=== PATIENT | female | born 1955 | race Two or more races ===

== ENCOUNTER 2016-12-26 10:28 | Inpatient (IN) | payer MEDICARE, OTHER ==
[~2016-12-26] VITALS: Ht 152.4 cm; Wt 61.2 kg
[~2016-12-26 10:28] MED LIST: AMLODIPINE BESYL5 MG ORAL; ASPIRIN EC81 MG ORAL; CELEBREX100 MG ORAL; CYCLOBENZAPRINE10 MG ORAL; FLUCONAZOLE150 MG ORAL; FLUTICASONE; IBUPROFEN600 MG ORAL; LORATADINE10 M1 ORAL; LOSARTAN POTASS50 MG ORAL; LOTRISONE CREAM15 GM TP; MEDROL DOSEPAK4 MG ORAL; MONTELUKAST SOD10 MG ORAL; NORCO 5-325 TA1 EACH ORAL; PEPCID40 MG PO; PRAVASTATIN SOD40 M1 ORAL; PRILOSEC40 MG ORAL; QVAR 80MCG ORA1 PUFF INH; SERTRALINE HCL100 MG ORAL; TRAMADOL HCL100 M2 ORAL; TRIAMCINOLONE A60 ML TP; TRIAMTERENE-HC1 EAC7 ORAL
[2016-12-26 10:43] VITALS: BP 129/75
[2016-12-26 11:05] LABS: BASOPHILS % (AUTO) 0.9 % (0.0-2.0); EOSINOPHILS % (AUTO) 1.7 % (0.0-3.0); LYMPHOCYTES % (AUTO) 46.2 % (20.0-45.0); MEAN CORPUSCULAR HEMOGLOBIN 29.5 PG (27.0-31.0); MEAN CORPUSCULAR HGB CONC 32.1 G/DL (32.0-36.0); MEAN CORPUSCULAR VOLUME 92 FL (80-99); MEAN PLATELET VOLUME 5.7 FL (6.5-10.1); MONOCYTES % (AUTO) 7.9 % (1.0-10.0); NEUTROPHILS % (AUTO) 43.4 % (45.0-75.0); PLATELET COUNT 235 K/UL (150-450); RED BLOOD COUNT 4.27 M/UL (4.20-5.40); RED CELL DISTRIBUTION WIDTH 14.1 % (11.6-14.8); WHITE BLOOD COUNT 4.8 K/UL (4.8-10.8)
--- NOTE | 2016-12-26 11:11 | Diagnostic Imaging Report ---
Indication: Chest pain Technique: XRAY CHEST 1 V Comparison: 04/24/13 Findings: Cardiomedial still silhouette is stable. There is no consolidation or pleural effusion. Osseous structures are stable. Impression: No acute cardiopulmonary disease.
[2016-12-26] MEDS ORDERED: Nitroglycerin Subl 0.4mg tab (Bottle Of 25) SL PRN ×2 (11:15→13:45)
[2016-12-26 11:17] LABS: TROPONIN I < 0.30 ng/mL (<=0.30)
[2016-12-26 11:19] LABS: ALANINE AMINOTRANSFERASE 26 U/L (3-33); ALBUMIN/GLOBULIN RATIO 1.3 (1.0-2.7); ANION GAP 16 (5-15); ASPARTATE AMINO TRANSFERASE 31 U/L (5-40); CARBON DIOXIDE 22 mEQ/L (20-30); CHLORIDE 99 mEQ/L (98-107); CREATININE 0.7 mg/dL (0.5-0.9); GLOMERULAR FILTRATION RATE > 60 mL/min (>60); HEMOLYSIS 4; SODIUM 137 mEQ/L (135-145); TOTAL PROTEIN 6.7 g/dL (6.6-8.7)
[2016-12-26 11:37] LABS: CKMB 7.8 ng/mL (< 3.8)
[2016-12-26 12:26] VITALS: BP 118/74
[2016-12-26] MEDS ORDERED: Diltiazem 25mg/5ml IV PRN (13:45)
[2016-12-26] MEDS ORDERED: Ketorolac 30mg Inj IV PRN (13:45)
[2016-12-26] MEDS ORDERED: Enalaprilat 2.5mg/2ml Inj IV PRN (13:45)
[2016-12-26] MEDS ORDERED: DuoNeb 0.5-3(2.5)mg/3ml neb HHN PRN (13:45)
[2016-12-26] MEDS ORDERED: Miralax 17gm pkt ORAL PRN (13:45)
[2016-12-26] MEDS ORDERED: Morphine Sulfate 2mg/ml Inj IVP PRN (13:45)
--- NOTE | 2016-12-26 14:16 | Emergency Room Report ---
History of Present Illness General Chief Complaint: Chest Pain Source: Patient Present Illness HPI 61-year-old female presents to ED complaining of chest pain. Started this morning while at rest. Pain is midsternal, pressure-like. 8/10. Nonradiating. Denies shortness of breath. Also notes headache across the forehead, throbbing. Denies neck stiffness. Denies fevers or chills. Denies nausea or vomiting. No other aggravating relieving factors. Denies any other associated symptoms Allergies: Coded Allergies: No Known Allergies (Unverified , 04/24/13) Patient History Past Medical History: DM, HTN, asthma, CVA/TIA Past Surgical History: none Pertinent Family History: none Social History: Denies: alcohol use, drug use, smoking Now: No Immunizations: UTD Reviewed Nursing Documentation: PMH: Agreed, PSxH: Agreed Nursing Documentation-PMH Hx Cardiac Problems: No - hyperlipidemia Hx Hypertension: Yes Hx Pacemaker: No - HYPOTHYROIDSIM Hx Asthma: Yes Hx Diabetes: Yes Hx Cancer: No Hx Gastrointestinal Problems: No Hx Neurological Problems: Yes Hx Cerebrovascular Accident: Yes - 2010 Hx Weakness: Yes - GENERALIZED Review of Systems All Other Systems: negative except mentioned in HPI Physical Exam Vital Signs Date Time Temp Pulse Resp B/P Pulse Ox O2 Delivery O2 Flow Rate FiO2 12/26/16 10:37 98.2 68 20 129/75 100 Room Air Sp02 EP Interpretation: reviewed, normal General Appearance: no apparent distress, alert, GCS 15, non-toxic Head: normocephalic, atraumatic Eyes: bilateral eye PERRL, bilateral eye normal inspection ENT: hearing grossly normal, normal pharynx, no angioedema, normal voice Neck: full range of motion, supple/symm/no masses Respiratory: chest non-tender, lungs clear, normal breath sounds, speaking full sentences Cardiovascular #1: regular rate, rhythm, no edema Cardiovascular #2: 2+ carotid (R), 2+ carotid (L), 2+ radial (R), 2+ radial (L) , 2+ dorsalis pedis (R), 2+ dorsalis pedis (L) Gastrointestinal: normal bowel sounds, non tender, soft, non-distended, no guarding, no rebound Rectal: deferred Genitourinary: normal inspection, no CVA tenderness Musculoskeletal: back normal, gait/station normal, normal range of motion, non- tender Neurologic: alert, oriented x3, responsive, motor strength/tone normal, sensory intact, speech normal Psychiatric: judgement/insight normal, memory normal, mood/affect normal, no suicidal/homicidal ideation Reflexes: 3+ bicep (R), 3+ bicep (L), 3+ tricep (R), 3+ tricep (L), 3+ knee (R) , 3+ knee (L) Skin: normal color, no rash, warm/dry, well hydrated Lymphatic: no adenopathy Medical Decision Making Diagnostic Impression: Primary Impression: ACS (acute coronary syndrome) ER Course Hospital Course 61-year-old female presents ED complaining of pressure like chest pain Differential diagnoses include: AR/unstable angina, contusion, muscle strain, PTX, rib fracture Clinical course Patient placed on stretcher. on posting specialist. After initial history and physical I ordered labs, EKG, chest x-ray, NTG labs reviewed- no leukocytosis, hb/hct stable, electrolytes ok, trop negative EKG - NSR , no acute changes Chest x-ray- no acute process CT head ok given asa Case discussed with Dr. Fisher and he agreed to accept the patient to his service for further care and support I. I feel this is a highly complex case requiring extensive working including EKG/Rhythm strip, Xray/CT/US, Blood/urine lab work, repeat exams while in ED, and administration of strong opiates/narcotics for pain control, admission to hospital or close patient follow up. Diagnosis - ACS admitted to telemetry in serious condition Labs Test 12/26/16 10:55 White Blood Count 4.8 K/UL (4.8-10.8) Red Blood Count 4.27 M/UL (4.20-5.40) Hemoglobin 12.6 G/DL (12.0-16.0) Hematocrit 39.3 % (37.0-47.0) Mean Corpuscular Volume 92 FL (80-99) Mean Corpuscular Hemoglobin 29.5 PG (27.0-31.0) Mean Corpuscular Hemoglobin Concent 32.1 G/DL (32.0-36.0) Red Cell Distribution Width 14.1 % (11.6-14.8) Platelet Count 235 K/UL (150-450) Mean Platelet Volume 5.7 FL (6.5-10.1) Neutrophils (%) (Auto) 43.4 % (45.0-75.0) Lymphocytes (%) (Auto) 46.2 % (20.0-45.0) Monocytes (%) (Auto) 7.9 % (1.0-10.0) Eosinophils (%) (Auto) 1.7 % (0.0-3.0) Basophils (%) (Auto) 0.9 % (0.0-2.0) Sodium Level 137 mEQ/L (135-145) Potassium Level 4.0 mEQ/L (3.4-4.9) Chloride Level 99 mEQ/L (98-107) Carbon Dioxide Level 22 mEQ/L (20-30) Anion Gap 16 (5-15) Blood Urea Nitrogen 12 mg/dL (7-23) Creatinine 0.7 mg/dL (0.5-0.9) Estimat Glomerular Filtration Rate > 60 mL/min (>60) Glucose Level 92 mg/dL (74-106) Calcium Level 9.0 mg/dL (8.6-10.2) Total Bilirubin 0.5 mg/dL (0.0-1.2) Aspartate Amino Transf (AST/SGOT) 31 U/L (5-40) Alanine Aminotransferase (ALT/SGPT) 26 U/L (3-33) Alkaline Phosphatase 109 U/L (35-104) Total Creatine Kinase 312 U/L (26-140) Creatine Kinase MB 7.8 ng/mL (< 3.8) Creatine Kinase MB Relative Index 2.5 Troponin I < 0.30 ng/mL (<=0.30) Pro-B-Type Natriuretic Peptide 98 pg/mL (0-125) Total Protein 6.7 g/dL (6.6-8.7) Albumin 3.9 g/dL (3.5-5.2) Globulin 2.8 g/dL Albumin/Globulin Ratio 1.3 (1.0-2.7) EKG Diagnostic Results Rate: normal Rhythm: NSR ST Segments: no acute changes ASA given to the pt in ED: Yes Rhythm Strip Diag. Results EP Interpretation: yes Rhythm: NSR, no PVC's, no ectopy Chest X-Ray Diagnostic Results EP Interpretation: No Findings: no consolidation, no effusion, no pneumothorax, no acute cardiopulmonary disease Number of Views: 1 CT/MRI/US Diagnostic Results CT/MRI/US Diagnostic Results : Imaging Test Ordered: CT head Impression no acute process Last Vital Signs Date Time Temp Pulse Resp B/P Pulse Ox O2 Delivery O2 Flow Rate FiO2 12/26/16 12:26 20 118/74 100 Room Air 12/26/16 10:43 98.2 12/26/16 10:43 68 Status: improved Disposition: ADMITTED INPATIENT Condition: Serious Referrals: NON PHYSICIAN (PCP) CHRISTOPHER JARRETT M.D. Dec 26, 2016 14:16
[2016-12-26] MEDS ORDERED: IBUPROFEN600 MG ORAL (14:58)
[2016-12-26] MEDS ORDERED: IBUPROFEN400 MG ORAL (14:59)
[2016-12-26] MEDS ORDERED: ADVAIR HFA 230-12 GM INH (15:03)
[2016-12-26] MEDS ORDERED: PROAIR HFA8.5 GM INH (15:04)
[2016-12-26] MEDS ORDERED: HYDROCORTISON28.4 G6 TP (15:09)
[2016-12-26] MEDS ORDERED: LOVAZA1 GM ORAL (15:10)
[2016-12-26] MEDS ORDERED: AZELASTINE137 MCG/0. NS (15:11)
[2016-12-26] MEDS ORDERED: SUMATRIPTAN SUC25 MG PO (15:12)
[2016-12-26] MEDS ORDERED: DIPHENHYDRAMINE25 M1 ORAL (15:15)
[2016-12-26] MEDS ORDERED: FAMOTIDINE20 MG ORAL (15:18)
[2016-12-26] MEDS ORDERED: FLUTICASONE PRO16 G1 NASAL (15:18)
[2016-12-26] MEDS ORDERED: PROCTOCREAM-HC30 GM RC (15:20)
[2016-12-26] MEDS ORDERED: ALLER-TEC10 M1 PO (15:21)
[2016-12-26] MEDS ORDERED: LANSOPRAZOLE30 MG ORAL (15:21)
[2016-12-26] MEDS ORDERED: LEVOTHYROXINE25 MCG ORAL (15:22)
[2016-12-26] MEDS ORDERED: INDERAL LA60 MG ORAL (15:23)
[2016-12-26] MEDS ORDERED: PAMELOR10 MG ORAL (15:24)
[2016-12-26] MEDS ORDERED: TRAMADOL HCL50 MG ORAL (15:26)
[2016-12-26] MEDS ORDERED: PATADAY2.5 ML OP (15:27)
[2016-12-26 15:30] VITALS: BP 113/76
[2016-12-26] MEDS ORDERED: NATURE'S TEARS15 M1 OP (15:30)
[2016-12-26 15:52] LABS: TROPONIN I < 0.30 ng/mL (<=0.30)
--- NOTE | 2016-12-26 16:56 | Cardiology Progress Note ---
Subjective Subjective [id number] Objective Last 24 Hour Vital Signs Date Time Temp Pulse Resp B/P Pulse Ox O2 Delivery O2 Flow Rate FiO2 12/26/16 14:38 98.2 76 20 124/77 100 Room Air 12/26/16 12:26 69 20 118/74 100 Room Air 12/26/16 11:25 112/74 12/26/16 10:43 98.2 20 129/75 100 Room Air 12/26/16 10:43 68 20 Room Air 12/26/16 10:37 98.2 68 20 129/75 100 Room Air Laboratory Tests Test 12/26/16 10:55 12/26/16 15:10 White Blood Count 4.8 K/UL (4.8-10.8) Red Blood Count 4.27 M/UL (4.20-5.40) Hemoglobin 12.6 G/DL (12.0-16.0) Hematocrit 39.3 % (37.0-47.0) Mean Corpuscular Volume 92 FL (80-99) Mean Corpuscular Hemoglobin 29.5 PG (27.0-31.0) Mean Corpuscular Hemoglobin Concent 32.1 G/DL (32.0-36.0) Red Cell Distribution Width 14.1 % (11.6-14.8) Platelet Count 235 K/UL (150-450) Mean Platelet Volume 5.7 FL (6.5-10.1) L Neutrophils (%) (Auto) 43.4 % (45.0-75.0) L Lymphocytes (%) (Auto) 46.2 % (20.0-45.0) H Monocytes (%) (Auto) 7.9 % (1.0-10.0) Eosinophils (%) (Auto) 1.7 % (0.0-3.0) Basophils (%) (Auto) 0.9 % (0.0-2.0) Sodium Level 137 mEQ/L (135-145) Potassium Level 4.0 mEQ/L (3.4-4.9) Chloride Level 99 mEQ/L (98-107) Carbon Dioxide Level 22 mEQ/L (20-30) Anion Gap 16 (5-15) H Blood Urea Nitrogen 12 mg/dL (7-23) Creatinine 0.7 mg/dL (0.5-0.9) Estimat Glomerular Filtration Rate > 60 mL/min (>60) Glucose Level 92 mg/dL (74-106) Calcium Level 9.0 mg/dL (8.6-10.2) Total Bilirubin 0.5 mg/dL (0.0-1.2) Aspartate Amino Transf (AST/SGOT) 31 U/L (5-40) Alanine Aminotransferase (ALT/SGPT) 26 U/L (3-33) Alkaline Phosphatase 109 U/L (35-104) H Total Creatine Kinase 312 U/L (26-140) H Creatine Kinase MB 7.8 ng/mL (< 3.8) H Creatine Kinase MB Relative Index 2.5 Troponin I < 0.30 ng/mL (<=0.30) < 0.30 ng/mL (<=0.30) Pro-B-Type Natriuretic Peptide 98 pg/mL (0-125) Total Protein 6.7 g/dL (6.6-8.7) Albumin 3.9 g/dL (3.5-5.2) Globulin 2.8 g/dL Albumin/Globulin Ratio 1.3 (1.0-2.7) STANLEY DENNY Dec 26, 2016 16:56
--- NOTE | 2016-12-26 19:07 | History and Physical ---
History of Present Illness General Date patient seen: Dec 26, 2016 Reason for Hospitalization: Chest Pain Present Illness HPI 61-year-old female with hx of HTN, astham, migraine presented to ED complaining of chest pain while at rest. Pain is midsternal, pressure-like. . Nonradiating. Pt is admitted to telemetry to rule out unstable angina and ACS. Allergies: Coded Allergies: No Known Allergies (Unverified , 04/24/13) Medication History Scheduled Albuterol Sulfate* (Proair Hfa*), 1 PUFF INH Q6H, (Reported) Amlodipine Besylate* (Amlodipine Besylate*), 5 MG ORAL DAILY, (Reported) Dextran 70/Hypromellose (Nature's Tears Eye Drops), 15 ML OP QHS, (Reported) Famotidine (Famotidine), 20 MG ORAL DAILY, (Reported) Fluticasone Propionate* (Fluticasone Propionate*), 2 SPRAY NASAL DAILY, ( Reported) Ibuprofen* (Motrin*), 400 MG ORAL Q8H, (Reported) Lansoprazole* (Lansoprazole*), 30 MG ORAL DAILY, (Reported) Levothyroxine Sodium* (Levothyroxine Sodium*), 25 MCG ORAL DAILY, (Reported) Losartan Potassium* (Losartan Potassium*), 50 MG ORAL DAILY, (Reported) Montelukast Sodium* (Montelukast Sodium*), 10 MG ORAL DAILY, (Reported) Nortriptyline Hcl* (Pamelor*), 10 MG ORAL DAILY, (Reported) Olopatadine Hcl (Pataday), 0.2 % OP DAILY, (Reported) [place]-3 Acid Ethyl Esters (Lovaza), 1 GM ORAL DAILY, (Reported) Pravastatin Sod (Pravastatin Sod), 40 MG ORAL DAILY, (Reported) Propranolol Hcl* (Inderal La*), 60 MG ORAL DAILY, (Reported) Scheduled PRN Tramadol Hcl* (Ultram*), Unknown Dose ORAL Q6H PRN for For Pain, (Reported) Miscellaneous Medications Azelastine Hcl (Azelastine Hcl), 137 MCG NS, (Reported) Cetirizine Hcl (Aller-Steph), Unknown Dose PO, (Reported) Diphenhydramine Hcl* (Diphenhydramine Hcl*), 25 MG ORAL, (Reported) Fluticasone/Salmeterol (Advair Hfa 230-21 Mcg Inhaler), 2 PUFF INH, (Reported) Hydrocortisone (Proctozone-Hc), 2.5 % RC, (Reported) Hydrocortisone Acetate (Hydrocortisone Acetate), 2.5 % TP, (Reported) Sumatriptan Succinate (Sumatriptan Succinate), 25 MG PO, (Reported) Triamterene/Hydrochlorothiazid (Triamterene-Hctz 37.5-25 Mg Cp), 1 EACH ORAL, ( Reported) Discontinued Medications Aspirin Ec* (Aspirin Ec*), 81 MG ORAL DAILY, (Reported) Discontinued Reason: Pt stopped taking med Beclomethasone Dip 80MCG Oral Inhaler* (Qvar 80MCG Oral Inhaler*), 1 PUFF INH EVERY 12 HOURS, (Reported) Discontinued Reason: Pt stopped taking med Celecoxib* (Celebrex*), 100 MG ORAL TWICE A DAY, (Reported) Discontinued Reason: Pt stopped taking med Clotrimazole/Betamethasone Dip* (Lotrisone Cream*), 1 APPLIC TP TWICE A DAY Discontinued Reason: Pt stopped taking med Cyclobenzaprine Hcl* (Flexeril*), 10 MG ORAL THREE TIMES A DAY, (Reported) Discontinued Reason: Pt stopped taking med Fluconazole (Fluconazole), 150 MG ORAL DAILY, (Reported) Discontinued Reason: Pt stopped taking med Hydrocodone Bit/Acetaminophen 5-325* (Century 5-325*), 1 TAB ORAL Q6H PRN for For Pain Discontinued Reason: Pt stopped taking med Ibuprofen* (Motrin*), 400 MG ORAL Q8HR, (Reported) Discontinued Reason: Prescription changed Loratadine (Loratadine), 10 MG ORAL DAILY, (Reported) Discontinued Reason: Pt stopped taking med Methylprednisolone (Methylprednisolone*), 4 MG ORAL .as directed Discontinued Reason: Pt stopped taking med Omeprazole (Prilosec), 40 MG ORAL DAILY, (Reported) Discontinued Reason: Pt stopped taking med Sertraline Hcl* (Zoloft*), 100 MG ORAL DAILY, (Reported) Discontinued Reason: Pt stopped taking med Triamcinolone Acetonide (Triamcinolone Acetonide), 60 ML TP BID Discontinued Reason: Pt stopped taking med Patient History Healthcare decision maker Resuscitation status Full Code Advanced Directive on File Past Medical/Surgical History Past Medical/Surgical History: (1) HTN (hypertension) (2) Migraine Review of Systems All Other Systems: negative except mentioned in HPI Physical Exam General Appearance: WD/WN Lines, tubes and drains: peripheral, PICC HEENT: normocephalic, atraumatic Neck: non-tender, normal alignment Respiratory/Chest: chest wall non-tender, lungs clear Abdomen: normal bowel sounds, soft Genitourinary/Rectal: normal genital exam Extremities: normal range of motion Last 24 Hour Vital Signs Date Time Temp Pulse Resp B/P Pulse Ox O2 Delivery O2 Flow Rate FiO2 12/26/16 16:00 86 12/26/16 15:30 98.1 67 20 113/76 100 Room Air 12/26/16 14:38 98.2 76 20 124/77 100 Room Air 12/26/16 12:26 69 20 118/74 100 Room Air 12/26/16 11:25 112/74 12/26/16 10:43 98.2 20 129/75 100 Room Air 12/26/16 10:43 68 20 Room Air 12/26/16 10:37 98.2 68 20 129/75 100 Room Air Laboratory Tests Test 12/26/16 10:55 12/26/16 15:10 White Blood Count 4.8 K/UL (4.8-10.8) Red Blood Count 4.27 M/UL (4.20-5.40) Hemoglobin 12.6 G/DL (12.0-16.0) Hematocrit 39.3 % (37.0-47.0) Mean Corpuscular Volume 92 FL (80-99) Mean Corpuscular Hemoglobin 29.5 PG (27.0-31.0) Mean Corpuscular Hemoglobin Concent 32.1 G/DL (32.0-36.0) Red Cell Distribution Width 14.1 % (11.6-14.8) Platelet Count 235 K/UL (150-450) Mean Platelet Volume 5.7 FL (6.5-10.1) L Neutrophils (%) (Auto) 43.4 % (45.0-75.0) L Lymphocytes (%) (Auto) 46.2 % (20.0-45.0) H Monocytes (%) (Auto) 7.9 % (1.0-10.0) Eosinophils (%) (Auto) 1.7 % (0.0-3.0) Basophils (%) (Auto) 0.9 % (0.0-2.0) Sodium Level 137 mEQ/L (135-145) Potassium Level 4.0 mEQ/L (3.4-4.9) Chloride Level 99 mEQ/L (98-107) Carbon Dioxide Level 22 mEQ/L (20-30) Anion Gap 16 (5-15) H Blood Urea Nitrogen 12 mg/dL (7-23) Creatinine 0.7 mg/dL (0.5-0.9) Estimat Glomerular Filtration Rate > 60 mL/min (>60) Glucose Level 92 mg/dL (74-106) Calcium Level 9.0 mg/dL (8.6-10.2) Total Bilirubin 0.5 mg/dL (0.0-1.2) Aspartate Amino Transf (AST/SGOT) 31 U/L (5-40) Alanine Aminotransferase (ALT/SGPT) 26 U/L (3-33) Alkaline Phosphatase 109 U/L (35-104) H Total Creatine Kinase 312 U/L (26-140) H Creatine Kinase MB 7.8 ng/mL (< 3.8) H Creatine Kinase MB Relative Index 2.5 Troponin I < 0.30 ng/mL (<=0.30) < 0.30 ng/mL (<=0.30) Pro-B-Type Natriuretic Peptide 98 pg/mL (0-125) Total Protein 6.7 g/dL (6.6-8.7) Albumin 3.9 g/dL (3.5-5.2) Globulin 2.8 g/dL Albumin/Globulin Ratio 1.3 (1.0-2.7) Height (Feet): 5 Height (Inches): 0.00 Weight (Pounds): 135 Medications Current Medications Medications (Trade) Dose Ordered Sig/Vanda Route PRN Reason Start Time Stop Time Status Last Admin Dose Admin Acetaminophen (Tylenol) 650 mg Q4H PRN ORAL FEVER 12/26/16 13:45 01/25/17 13:44 Albuterol/ Ipratropium (DuoNeb 0.5-3(2.5)mg/3ml) 3 ml Q4H PRN HHN Shortness of Breath 12/26/16 13:45 12/31/16 13:44 Amlodipine Besylate (Norvasc) 5 mg DAILY ORAL 12/27/16 09:00 01/26/17 08:59 Aspirin (Ecotrin) 81 mg DAILY ORAL 12/27/16 09:00 01/26/17 08:59 Diltiazem HCl (Cardizem) 10 mg Q1H PRN IV HR > 120 12/26/16 13:45 01/25/17 13:44 Enalaprilat (Vasotec) 2.5 mg Q6H PRN IV sbp more than 160 12/26/16 13:45 01/25/17 13:44 Heparin Sodium (Porcine) (Heparin 5000 units/ml) 5,000 units EVERY 12 HOURS SUBQ 12/26/16 21:00 01/25/17 20:59 Ketorolac Tromethamine (Toradol 30mg) 30 mg Q6H PRN IV moderate pain ( 4-6) 12/26/16 13:45 12/31/16 13:44 Losartan Potassium (Cozaar) 50 mg DAILY ORAL 12/27/16 09:00 01/26/17 08:59 Morphine Sulfate (Morphine Sulfate) 2 mg Q4H PRN IVP severe Pain (Pain Scale 7-10) 12/26/16 13:45 01/02/17 13:44 Nitroglycerin (Ntg) 0.4 mg Q5M PRN SL Prn Chest Pain 12/26/16 11:15 01/25/17 11:14 12/26/16 11:25 Nitroglycerin (Ntg) 0.4 mg Q5MIN X 3 DOSES PRN SL Prn Chest Pain 12/26/16 13:45 01/25/17 13:44 Ondansetron HCl (Zofran) 4 mg Q6H PRN IVP Nausea & Vomiting 12/26/16 13:45 01/25/17 13:44 Pantoprazole (Protonix) 40 mg DAILY ORAL 12/27/16 09:00 01/26/17 08:59 Polyethylene Glycol (Miralax) 17 gm DAILYPRN PRN ORAL Constipation 12/26/16 13:45 01/25/17 13:44 Pravastatin Sodium (Pravachol) 40 mg DAILY ORAL 12/27/16 09:00 01/26/17 08:59 Sertraline HCl (Zoloft) 100 mg DAILY ORAL 12/27/16 09:00 01/26/17 08:59 Temazepam (Restoril) 15 mg HSPRN PRN ORAL Insomnia 12/26/16 13:45 01/02/17 13:44 Assessment/Plan Problem List: (1) ACS (acute coronary syndrome) ICD Codes: I24.9 - Acute ischemic heart disease, unspecified SNOMED: 283251716 (2) HTN (hypertension) ICD Codes: I10 - Essential (primary) hypertension SNOMED: 48495731 (3) Migraine ICD Codes: G43.909 - Migraine, unspecified, not intractable, without status migrainosus SNOMED: 00000525 Assessment/Plan serial EKG, troponin stress study monitor BP telemetry JOAQUIN NOGUERA Dec 26, 2016 19:07
[2016-12-26 20:00] VITALS: BP 117/79
[2016-12-26] MEDS: Heparin 5000 units/ml inj SUBQ SCH (20:16)
--- NOTE | 2016-12-26 21:28 | Consultation ---
DATE OF CONSULTATION: 12/26/2016 CARDIOLOGY CONSULTATION This consultation is done as a coverage for Dr. Paul Kim. IDENTIFYING DATA: This is a 61-year-old, female. REASON FOR ADMISSION: Chest pain. HISTORY OF PRESENT ILLNESS: The patient reports that she had tightness in her chest and she could not breathe this morning. She had a little bit of a cough. No fever. It was nonexertional. She had it before but she is not sure if she was in the hospital for that. She denies a cardiac history. She has severe hypertension. She had a history of stroke. She said that the chest pain is nonexertional and continues since this morning. It is better when she sits up a little bit. There is no fever. No sputum production. PAST MEDICAL HISTORY: Significant for asthma, hypertension, hyperlipidemia and history of stroke as I mentioned. PAST SURGICAL HISTORY: Significant for hysterectomy and three C-sections. She also had a bladder suspension with a mesh. MEDICATIONS: All reviewed and reconciled. HABITS: She used to smoke about 4 cigarettes a day for last 23 years. She quit 3 years ago. There is no alcohol or drug abuse. ALLERGIES: She is not allergic to medication. MEDICATIONS: At home she takes albuterol, amlodipine, spray, Dextran, famotidine, ibuprofen, lansoprazole, levothyroxine, losartan, montelukast, and pravastatin. REVIEW OF SYSTEMS: Significant for severe insomnia, intermittent abdominal pain and frequent urination. PHYSICAL EXAMINATION: GENERAL: This is a pleasant female. VITAL SIGNS: Blood pressure 120/70, heart rate 70, and oxygen saturation 98.2%. HEENT: PERRLA. EOMI. NECK: Neck veins difficult to assess due to body habitus. LUNGS: Few wheezing. HEART: Regular with accented A2. ABDOMEN: Distended. Slightly tender in epigastric area. Bowel sounds are present. Small umbilical hernia. EXTREMITIES: Lower extremities, no edema. Distal pulses palpable. NEUROLOGICAL: She appears to be intact. LABORATORY AND DIAGNOSTIC DATA: EKG reveals sinus rhythm without any significant ST or T changes and partial right bundle branch block, leftward axis, slightly decreased voltage. Her laboratories are all reviewed. Troponin was negative. She has elevated CK and CK-MB but CK-MB index was normal. Alkaline phosphatase is 109. Her chest x-ray revealed no significant abnormalities. IMPRESSION AND RECOMMENDATIONS: Atypical chest pain could be due to chronic obstructive pulmonary disease, could be due to angina, and could be due to atypical chest pain. The patient has multiple coronary risk factors. She is a smoker. She has hypertension and hyperlipidemia. She has history of stroke so she needs some cardiac workup done. Because of her asthma, I am going to order dobutamine nuclear scan for her. I discussed this with the patient and she should be monitored until the test is done tomorrow. Thank you very much for your consultation. Aditi Womack M.D. DR: KAIT JOB#: [id number] CC:
[2016-12-27] VITALS: BP 114/75
[2016-12-27 04:00] VITALS: BP 100/64
[2016-12-27 08:00] VITALS: BP 117/74
[2016-12-27 08:12] LABS: BASOPHILS % (AUTO) 1.3 % (0.0-2.0); EOSINOPHILS % (AUTO) 1.6 % (0.0-3.0); LYMPHOCYTES % (AUTO) 50.6 % (20.0-45.0); MEAN CORPUSCULAR HEMOGLOBIN 30.5 PG (27.0-31.0); MEAN CORPUSCULAR HGB CONC 32.8 G/DL (32.0-36.0); MEAN CORPUSCULAR VOLUME 93 FL (80-99); MEAN PLATELET VOLUME 5.8 FL (6.5-10.1); MONOCYTES % (AUTO) 7.4 % (1.0-10.0); NEUTROPHILS % (AUTO) 39.2 % (45.0-75.0); PLATELET COUNT 232 K/UL (150-450); RED BLOOD COUNT 4.16 M/UL (4.20-5.40); RED CELL DISTRIBUTION WIDTH 13.9 % (11.6-14.8); WHITE BLOOD COUNT 4.3 K/UL (4.8-10.8)
[2016-12-27 08:27] LABS: PROTHROMBIN TIME 10.3 SEC (9.30-11.50)
[2016-12-27 08:38] LABS: TROPONIN I < 0.30 ng/mL (<=0.30)
[2016-12-27 08:40] LABS: CHOLESTEROL 202 mg/dL (< 200); CHOLESTEROL/HDL RATIO 3.6 (3.3-4.4); CRP QUANT < 0.3 mg/dL (< 0.5); HEMOLYSIS 4; LDL CHOLESTEROL (CALC.) 116 mg/dL (60-99)
[2016-12-27] MEDS: Aspirin EC 81mg tab ORAL SCH (08:40)
[2016-12-27] MEDS: Sertraline 100mg tab ORAL SCH (08:40)
[2016-12-27] MEDS: Losartan 50mg tab ORAL SCH (08:41)
[2016-12-27] MEDS: Heparin 5000 units/ml inj SUBQ SCH ×2 (08:42→20:55)
--- NOTE | 2016-12-27 08:45 | Diagnostic Imaging Report ---
Indication: Headache Technique: Continuous helical CT scanning of the head was performed utilizing automated exposure control without intravenous contrast material. Axial and coronal reconstructions were obtained. Comparison: 04/24/13 CT dose: Total DLP 1346 mGycm; CTDI vol 70.4 mGy Findings: There is no acute intracranial hemorrhage, mass effect or cortical edema. The ventricles, cisterns and sulci are stable. The posterior fossa and fourth ventricle are unremarkable. Sellar and suprasellar regions are grossly unremarkable. Visualized mastoid air cells and paranasal sinuses are unremarkable. No focal lesions of the bony calvarium or soft tissues of the scalp are seen. Impression: No evidence of acute intracranial hemorrhage, mass effect or cortical edema. MRI may be obtained for more sensitive evaluation as clinically indicated. The CT scanner at [facility] is accredited by the [employer] and the scans are performed using protocols designed to limit radiation exposure to as low as reasonably achievable to attain images of sufficient resolution adequate for diagnostic evaluation.
[2016-12-27] MEDS ORDERED: Aspirin Baby 81mg ORAL SCH (09:00)
[2016-12-27 12:00] VITALS: BP 104/74
--- NOTE | 2016-12-27 13:02 | Pulmonology Progress Note ---
Assessment/Plan Problems: (1) ACS (acute coronary syndrome) (2) HTN (hypertension) (3) Migraine Assessment/Plan awaiting stress study no more chest pain monitor bp dc home if stress study negative Subjective ROS Limited/Unobtainable: No Constitutional: Reports: no symptoms HEENT: Repors: no symptoms Respiratory: Reports: no symptoms Cardiovascular: Reports: no symptoms Allergies: Coded Allergies: No Known Allergies (Unverified , 04/24/13) Objective Last 24 Hour Vital Signs Date Time Temp Pulse Resp B/P Pulse Ox O2 Delivery O2 Flow Rate FiO2 12/27/16 08:41 117/74 12/27/16 08:40 73 117/74 12/27/16 08:00 96.8 73 17 117/74 98 Room Air 12/27/16 08:00 69 12/27/16 04:00 97.7 69 20 100/64 98 Room Air 12/27/16 04:00 68 12/27/16 00:00 97.8 85 20 114/75 94 Room Air 12/27/16 00:00 76 12/26/16 20:00 76 12/26/16 20:00 98.1 78 20 117/79 99 Room Air 12/26/16 16:00 86 12/26/16 15:30 98.1 67 20 113/76 100 Room Air 12/26/16 14:38 98.2 76 20 124/77 100 Room Air Intake and Output 12/26/16 12/27/16 19:00 07:00 Intake Total 860 ml 120 ml Balance 860 ml 120 ml Intake Oral 360 ml 120 ml IV Total 500 ml # Voids 1 2 General Appearance: WD/WN HEENT: normocephalic, atraumatic Respiratory/Chest: chest wall non-tender, lungs clear Breasts: no masses Cardiovascular: normal peripheral pulses Abdomen: normal bowel sounds, soft, non tender Genitourinary: normal external genitalia Laboratory Tests 12/26/16 15:10: Troponin I < 0.30 12/27/16 07:20: Troponin I < 0.30, White Blood Count 4.3L, Red Blood Count 4.16L, Hemoglobin 12.7, Hematocrit 38.7, Mean Corpuscular Volume 93, Mean Corpuscular Hemoglobin 30.5, Mean Corpuscular Hemoglobin Concent 32.8, Red Cell Distribution Width 13.9 , Platelet Count 232, Mean Platelet Volume 5.8L, Neutrophils (%) (Auto) 39.2L, Lymphocytes (%) (Auto) 50.6H, Monocytes (%) (Auto) 7.4, Eosinophils (%) (Auto) 1.6, Basophils (%) (Auto) 1.3, Prothrombin Time 10.3, Prothromb Time International Ratio 1.0, Activated Partial Thromboplast Time 29, C-Reactive Protein, Quantitative < 0.3, Triglycerides Level 149, Cholesterol Level 202H, LDL Cholesterol 116H, HDL Cholesterol 56, Cholesterol/HDL Ratio 3.6, Thyroid Stimulating Hormone (TSH) 1.350 Current Medications Medications (Trade) Dose Ordered Sig/Vanda Route PRN Reason Start Time Stop Time Status Last Admin Dose Admin Acetaminophen (Tylenol) 650 mg Q4H PRN ORAL FEVER 12/26/16 13:45 01/25/17 13:44 Albuterol/ Ipratropium (DuoNeb 0.5-3(2.5)mg/3ml) 3 ml Q4H PRN HHN Shortness of Breath 12/26/16 13:45 12/31/16 13:44 Amlodipine Besylate (Norvasc) 5 mg DAILY ORAL 12/27/16 09:00 01/26/17 08:59 12/27/16 08:40 Aspirin (Ecotrin) 81 mg DAILY ORAL 12/27/16 09:00 01/26/17 08:59 12/27/16 08:40 Diltiazem HCl (Cardizem) 10 mg Q1H PRN IV HR > 120 12/26/16 13:45 01/25/17 13:44 Enalaprilat (Vasotec) 2.5 mg Q6H PRN IV sbp more than 160 12/26/16 13:45 01/25/17 13:44 Heparin Sodium (Porcine) (Heparin 5000 units/ml) 5,000 units EVERY 12 HOURS SUBQ 12/26/16 21:00 01/25/17 20:59 12/27/16 08:42 Ketorolac Tromethamine (Toradol 30mg) 30 mg Q6H PRN IV moderate pain ( 4-6) 12/26/16 13:45 12/31/16 13:44 Losartan Potassium (Cozaar) 50 mg DAILY ORAL 12/27/16 09:00 01/26/17 08:59 12/27/16 08:41 Morphine Sulfate (Morphine Sulfate) 2 mg Q4H PRN IVP severe Pain (Pain Scale 7-10) 12/26/16 13:45 01/02/17 13:44 Nitroglycerin (Ntg) 0.4 mg Q5M PRN SL Prn Chest Pain 12/26/16 11:15 01/25/17 11:14 12/26/16 11:25 Nitroglycerin (Ntg) 0.4 mg Q5MIN X 3 DOSES PRN SL Prn Chest Pain 12/26/16 13:45 01/25/17 13:44 Ondansetron HCl (Zofran) 4 mg Q6H PRN IVP Nausea & Vomiting 12/26/16 13:45 01/25/17 13:44 Pantoprazole (Protonix) 40 mg DAILY ORAL 12/27/16 09:00 01/26/17 08:59 12/27/16 08:40 Polyethylene Glycol (Miralax) 17 gm DAILYPRN PRN ORAL Constipation 12/26/16 13:45 01/25/17 13:44 Pravastatin Sodium (Pravachol) 40 mg DAILY ORAL 12/27/16 09:00 01/26/17 08:59 12/27/16 08:40 Sertraline HCl (Zoloft) 100 mg DAILY ORAL 12/27/16 09:00 01/26/17 08:59 12/27/16 08:40 Temazepam (Restoril) 15 mg HSPRN PRN ORAL Insomnia 12/26/16 13:45 01/02/17 13:44 12/26/16 22:31 JOAQUIN NOGUERA Dec 27, 2016 13:02
[2016-12-27] MEDS ORDERED: Atropine Sulfate 0.4mg/ml inj ONE (15:07)
[2016-12-27] MEDS ORDERED: DOBUTamine 250mg/250ml Premix IV ONE (15:07)
--- NOTE | 2016-12-27 15:41 | Diagnostic Imaging Report ---
Indications: . Technique: The examination was supervised by Dr. Horan. Baseline electrocardiogram was recorded. Dobutamine was administered the patient intravenously per standard protocol for a duration of 11 minutes, reaching target stress level of 134 beats per minute. Continuous electrocardiography, heart rate, blood pressure monitoring performed. Immediate SPECT imaging of the left ventricular myocardium was performed in multiple planes with the patient in supine position, following intravenous administration of 32.1 mCi 99 M technetium-sestaMIBI. Cinegraphic images were generated for wall motion analysis. Left ventricular ejection fraction was calculated. Similar imaging was performed at rest immediately prior with intravenous administration of 10.2 mCi 99 M technetium-sestaMIBI. Findings: Comparison: None. Both stress and rest images demonstrate left ventricular myocardial perfusion to be intact. No areas of abnormally decreased or absent perfusion are demonstrated. Cinegraphic images demonstrate no areas of wall motion abnormality. Ejection fraction is estimated at 69%. The patient developed no acute complaints or electrocardiographic changes during exercise stress. Supervising band aid machine operator's conclusions are that clinical response to exercise stress is nonischemic while electrocardiographic response is likewise nonischemic. IMPRESSION: Negative exercise left ventricular myocardial perfusion scan--no evidence of chemically induced left ventricular myocardial ischemia or prior infarct.. LVEF within normal limits This correlates with supervising band aid machine operator's conclusions.
[2016-12-27 16:00] VITALS: BP 117/71
--- NOTE | 2016-12-27 17:57 | Cardiology Progress Note ---
Assessment/Plan Assessment/Plan atypical chest pain obesity dm htn asthma ekg neg trop neg tele personly rev ekg pers rev dobutamin cardiolite (clinically and by ekg neg perfusion imaging neg as weel ) ok to dc home Subjective Cardiovascular: Denies: chest pain, lightheadedness, palpitations Respiratory: Reports: shortness of breath Gastrointestinal/Abdominal: Denies: abdominal pain Genitourinary: Denies: burning Objective Last 24 Hour Vital Signs Date Time Temp Pulse Resp B/P Pulse Ox O2 Delivery O2 Flow Rate FiO2 12/27/16 16:00 78 12/27/16 12:00 97.0 75 18 104/74 100 Room Air 12/27/16 12:00 75 12/27/16 08:41 117/74 12/27/16 08:40 73 117/74 12/27/16 08:00 96.8 73 17 117/74 98 Room Air 12/27/16 08:00 69 12/27/16 04:00 97.7 69 20 100/64 98 Room Air 12/27/16 04:00 68 12/27/16 00:00 97.8 85 20 114/75 94 Room Air 12/27/16 00:00 76 12/26/16 20:00 76 12/26/16 20:00 98.1 78 20 117/79 99 Room Air General Appearance: no apparent distress, alert Neck: supple Cardiovascular: normal rate, regular rhythm Respiratory/Chest: lungs clear, normal breath sounds Abdomen: normal bowel sounds, non tender, soft Extremities: no swelling Intake and Output 12/26/16 12/27/16 19:00 07:00 Intake Total 860 ml 120 ml Balance 860 ml 120 ml Intake Oral 360 ml 120 ml IV Total 500 ml # Voids 1 2 Laboratory Tests Test 12/27/16 07:20 White Blood Count 4.3 K/UL (4.8-10.8) L Red Blood Count 4.16 M/UL (4.20-5.40) L Hemoglobin 12.7 G/DL (12.0-16.0) Hematocrit 38.7 % (37.0-47.0) Mean Corpuscular Volume 93 FL (80-99) Mean Corpuscular Hemoglobin 30.5 PG (27.0-31.0) Mean Corpuscular Hemoglobin Concent 32.8 G/DL (32.0-36.0) Red Cell Distribution Width 13.9 % (11.6-14.8) Platelet Count 232 K/UL (150-450) Mean Platelet Volume 5.8 FL (6.5-10.1) L Neutrophils (%) (Auto) 39.2 % (45.0-75.0) L Lymphocytes (%) (Auto) 50.6 % (20.0-45.0) H Monocytes (%) (Auto) 7.4 % (1.0-10.0) Eosinophils (%) (Auto) 1.6 % (0.0-3.0) Basophils (%) (Auto) 1.3 % (0.0-2.0) Prothrombin Time 10.3 SEC (9.30-11.50) Prothromb Time International Ratio 1.0 (0.9-1.1) Activated Partial Thromboplast Time 29 SEC (23-33) Troponin I < 0.30 ng/mL (<=0.30) C-Reactive Protein, Quantitative < 0.3 mg/dL (< 0.5) Triglycerides Level 149 mg/dL (< 150) Cholesterol Level 202 mg/dL (< 200) H LDL Cholesterol 116 mg/dL (60-99) H HDL Cholesterol 56 mg/dL (> 60) Cholesterol/HDL Ratio 3.6 (3.3-4.4) Thyroid Stimulating Hormone (TSH) 1.350 uIU/mL (0.300-4.500) LOC MADRID Dec 27, 2016 17:57
[2016-12-27 20:00] VITALS: BP 116/77
[2016-12-28] VITALS: BP 114/71
[2016-12-28 04:00] VITALS: BP 117/76
[2016-12-28 08:13] LABS: TROPONIN I < 0.30 ng/mL (<=0.30)
[2016-12-28 08:35] VITALS: BP 115/79
[2016-12-28] MEDS: Sertraline 100mg tab ORAL SCH (08:57)
[2016-12-28] MEDS: Losartan 50mg tab ORAL SCH (08:57)
[2016-12-28] MEDS: Aspirin EC 81mg tab ORAL SCH (08:58)
[2016-12-28] MEDS: Heparin 5000 units/ml inj SUBQ SCH (09:01)
--- NOTE | 2016-12-28 09:39 | Cardiology Progress Note ---
Assessment/Plan Assessment/Plan atypical chest pain obesity dm htn asthma servin neg for ischemia ok to dc home Subjective Cardiovascular: Denies: chest pain, lightheadedness, palpitations Respiratory: Denies: shortness of breath Gastrointestinal/Abdominal: Denies: abdominal pain Genitourinary: Denies: burning Objective Last 24 Hour Vital Signs Date Time Temp Pulse Resp B/P Pulse Ox O2 Delivery O2 Flow Rate FiO2 12/28/16 08:58 69 115/79 12/28/16 08:57 115/79 12/28/16 08:35 97.9 69 18 115/79 98 Room Air 12/28/16 04:00 73 12/28/16 04:00 97.9 79 19 117/76 97 Room Air 12/28/16 00:00 73 12/28/16 00:00 97.9 82 21 114/71 95 Room Air 12/27/16 20:00 97.9 75 21 116/77 94 Room Air 12/27/16 20:00 74 12/27/16 16:00 78 12/27/16 16:00 97.9 70 18 117/71 98 Room Air 12/27/16 12:00 97.0 75 18 104/74 100 Room Air 12/27/16 12:00 75 General Appearance: no apparent distress, alert, obese Neck: no JVD Cardiovascular: normal rate, regular rhythm Respiratory/Chest: lungs clear, normal breath sounds Abdomen: normal bowel sounds, non tender, soft Extremities: no swelling Intake and Output 12/27/16 12/28/16 19:00 07:00 Intake Total 1339 ml Balance 1339 ml Intake Oral 340 ml IV Total 999 ml # Voids 7 1 Laboratory Tests Test 12/28/16 07:10 Troponin I < 0.30 ng/mL (<=0.30) LOC MADRID Dec 28, 2016 09:39
[2016-12-28 12:08] VITALS: BP 111/78
--- NOTE | 2016-12-28 13:18 | Pulmonology Progress Note ---
Assessment/Plan Problems: (1) ACS (acute coronary syndrome) (2) HTN (hypertension) (3) Migraine Assessment/Plan stress study negative no more chest pain monitor bp dc home today Subjective ROS Limited/Unobtainable: No Constitutional: Reports: no symptoms HEENT: Repors: no symptoms Allergies: Coded Allergies: No Known Allergies (Unverified , 04/24/13) Objective Last 24 Hour Vital Signs Date Time Temp Pulse Resp B/P Pulse Ox O2 Delivery O2 Flow Rate FiO2 12/28/16 12:08 98.1 71 18 111/78 99 Room Air 12/28/16 12:00 74 12/28/16 08:58 69 115/79 12/28/16 08:57 115/79 12/28/16 08:35 97.9 69 18 115/79 98 Room Air 12/28/16 08:00 75 12/28/16 04:00 73 12/28/16 04:00 97.9 79 19 117/76 97 Room Air 12/28/16 00:00 73 12/28/16 00:00 97.9 82 21 114/71 95 Room Air 12/27/16 20:00 97.9 75 21 116/77 94 Room Air 12/27/16 20:00 74 12/27/16 16:00 78 12/27/16 16:00 97.9 70 18 117/71 98 Room Air Intake and Output 12/27/16 12/28/16 19:00 07:00 Intake Total 1339 ml Balance 1339 ml Intake Oral 340 ml IV Total 999 ml # Voids 7 1 Objective General Appearance: WD/WN HEENT: normocephalic Respiratory/Chest: chest wall non-tender, lungs clear Cardiovascular: normal peripheral pulses, normal rate Abdomen: normal bowel sounds, soft, non tender 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 Laboratory Tests 12/28/16 07:10: Troponin I < 0.30 Current Medications Medications (Trade) Dose Ordered Sig/Vanda Route PRN Reason Start Time Stop Time Status Last Admin Dose Admin Acetaminophen (Tylenol) 650 mg Q4H PRN ORAL FEVER 12/26/16 13:45 01/25/17 13:44 Albuterol/ Ipratropium (DuoNeb 0.5-3(2.5)mg/3ml) 3 ml Q4H PRN HHN Shortness of Breath 12/26/16 13:45 12/31/16 13:44 Amlodipine Besylate (Norvasc) 5 mg DAILY ORAL 12/27/16 09:00 01/26/17 08:59 12/28/16 08:58 Aspirin (Ecotrin) 81 mg DAILY ORAL 12/27/16 09:00 01/26/17 08:59 12/28/16 08:58 Diltiazem HCl (Cardizem) 10 mg Q1H PRN IV HR > 120 12/26/16 13:45 01/25/17 13:44 Enalaprilat (Vasotec) 2.5 mg Q6H PRN IV sbp more than 160 12/26/16 13:45 01/25/17 13:44 Heparin Sodium (Porcine) (Heparin 5000 units/ml) 5,000 units EVERY 12 HOURS SUBQ 12/26/16 21:00 01/25/17 20:59 12/28/16 09:01 Ketorolac Tromethamine (Toradol 30mg) 30 mg Q6H PRN IV moderate pain ( 4-6) 12/26/16 13:45 12/31/16 13:44 Losartan Potassium (Cozaar) 50 mg DAILY ORAL 12/27/16 09:00 01/26/17 08:59 12/28/16 08:57 Morphine Sulfate (Morphine Sulfate) 2 mg Q4H PRN IVP severe Pain (Pain Scale 7-10) 12/26/16 13:45 01/02/17 13:44 Nitroglycerin (Ntg) 0.4 mg Q5M PRN SL Prn Chest Pain 12/26/16 11:15 01/25/17 11:14 12/26/16 11:25 Nitroglycerin (Ntg) 0.4 mg Q5MIN X 3 DOSES PRN SL Prn Chest Pain 12/26/16 13:45 01/25/17 13:44 Ondansetron HCl (Zofran) 4 mg Q6H PRN IVP Nausea & Vomiting 12/26/16 13:45 01/25/17 13:44 Pantoprazole (Protonix) 40 mg DAILY ORAL 12/27/16 09:00 01/26/17 08:59 12/28/16 08:58 Polyethylene Glycol (Miralax) 17 gm DAILYPRN PRN ORAL Constipation 12/26/16 13:45 01/25/17 13:44 Pravastatin Sodium (Pravachol) 40 mg DAILY ORAL 12/27/16 09:00 01/26/17 08:59 12/28/16 08:57 Sertraline HCl (Zoloft) 100 mg DAILY ORAL 12/27/16 09:00 01/26/17 08:59 12/28/16 08:57 Temazepam (Restoril) 15 mg HSPRN PRN ORAL Insomnia 12/26/16 13:45 01/02/17 13:44 12/27/16 22:32 JOAQUIN NOGUERA Dec 28, 2016 13:17
[2016-12-28] MEDS ORDERED: NS 275ml ONE (14:39)
--- NOTE | 2016-12-29 08:42 | Cardiology Report ---
APPROVED REPORT EXAM: Two-dimensional and M-mode echocardiogram with Doppler and color Doppler. INDICATION Left venricular function M-Mode DIMENSIONS IVSd0.8 (0.7-1.1cm)Left Atrium (MM)3.8 (1.6-4.0cm) LVDd4.3 (3.5-5.6cm)Aortic Root2.9 (2.0-3.7cm) PWd0.9 (0.7-1.1cm)Aortic Cusp Exc.1.5 (1.5-2.0cm) LVDs2.3 (2.5-4.0cm) PWs0.9 cm Technically difficult study due to poor acoustic windows. Normal left ventricular chamber size, systolic function and wall motion. Left ventricular ejection fraction estimated to be 60-65%. Mild left ventricular hypertrophy. No evidence of pericardial fat or effusion. All other cardiac chamber sizes are within normal limits. Focal aortic valve sclerosis with adequate cusp excursion Thickened mitral valve leaflets with normal excursion. Mitral annulus and aortic root calcification. Pulmonic valve not well visualized. Normal tricuspid valve structure. IVC is normal in size with physiologic collapse. A color flow and spectral Doppler study was performed and revealed: No aortic regurgitation. Mild mitral regurgitation. Left ventricular diastolic dysfunction grade 1. Trace tricuspid regurgitation. Tricuspid systolic velocities suggests peak right ventricular systolic pressure of 41mmHg Consistent with mild pulmonary hypertension.
--- NOTE | 2016-12-29 16:03 | Cardiology Report ---
APPROVED REPORT EKG Measurement Heart [id number] Normal sinus rhythm Low voltage QRS Cannot rule out Anterior infarct, age undetermined Abnormal ECG
--- NOTE | 2016-12-29 18:30 | Discharge Summary ---
Discharge Summary Hospital Course Date of Admission Dec 26, 2016 at 12:30 Date of Discharge Dec 28, 2016 at 14:40 Admitting Diagnosis ACS HPI Ada Duarte is a 61 year old female who was admitted on Dec 26, 2016 at 12:30 for Acute Coronary Syndrome Hospital Course [id number] Discharge Discharge Disposition Patient was discharged to Home (01) Discharge Diagnoses: Kymberly Rand NP Dec 29, 2016 18:30
--- NOTE | 2016-12-30 01:08 | Discharge Summary 2 SIG ---
DATE OF ADMISSION: 12/26/2016 DATE OF DISCHARGE: 12/28/2016 CONSULTANTS: Paul Kim M.D. BRIEF HOSPITAL COURSE: The patient is a 61-year-old female with history of hypertension,asthma,and migraine. She presented to ED complaining of chest pain that occurred at rest. The pain was described to be located midsternally and pressure-like, 8/10, and radiating. On evaluation at ED, the patient's EKG showed normal sinus rhythm. Initial troponin was negative. Chest x-ray showed no acute process. She was given aspirin. Due to her risk factors, with underlying history of diabetes, and hypertension, the patient was admitted for cardiac evaluation. She was seen by Dr. Kim. Troponins were monitored. The patient had multiple coronary risk factors as she is a smoker with hypertension, hyperlipidemia, and history of stroke.She was given aspirin and Pravachol. Because of her underlying asthma, she underwent dobutamine Cardiolite stress test. Results showed negative perfusion imaging. The patient was discharged home. Advised to follow up with PMD. FINAL DIAGNOSES: 1. Acute coronary syndrome with no active indication for myocardial infarction. 2. Hypertension. 3. Diabetes. 4. Migraine. 5. Asthma. 6. Obesity. Sharifa Fisher M.D. I have been assigned to dictate discharge summary on this account and I was not involved in the patient's management. Kymberly Rand N.P. DR: KIMBERLY JOB#: [id number] CC: LISSETH
== END 2016-12-28 14:40 | disposition home or self-care (01) | DRG 311 ==
LOC: EMR 11:15 → 2E 12:30 → EDBEDREQ 12:30
DX: I24.9 Acute ischemic heart disease, unspecified (principal); I10 Essential (primary) hypertension; J45.909 Unspecified asthma, uncomplicated; E66.9 Obesity, unspecified; Z68.26 Body mass index [BMI] 26.0-26.9, adult; G43.909 Migraine, unspecified, not intractable, without status migrainosus; E11.9 Type 2 diabetes mellitus without complications; E78.5 Hyperlipidemia, unspecified; Z86.73 Personal history of transient ischemic attack (TIA), and cerebral infarction without residual deficits; Z87.891 Personal history of nicotine dependence; G47.00 Insomnia, unspecified
CPT/HCPCS: 36415; 70450; 71010; 78452; 80053; 80061; 82550; 82553; 83880; 84443; 84484; 85025; 85610; 85730; 86140; 93005; 93017; 93306

== ENCOUNTER 2018-01-03 18:40 | Emergency (ER) | payer MEDICARE, OTHER ==
[~2018-01-03] VITALS: Ht 152.4 cm; Wt 68.0 kg
[~2018-01-03 18:40] MED LIST changes: +ADVAIR HFA 230-12 GM INH; +ALLER-TEC10 M1 PO; +AZELASTINE137 MCG/0. NS; +DIPHENHYDRAMINE25 M1 ORAL; +FAMOTIDINE20 MG ORAL; +FLUTICASONE PRO16 G1 NASAL; +HYDROCORTISON28.4 G6 TP; +IBUPROFEN400 MG ORAL; +INDERAL LA60 MG ORAL; +LANSOPRAZOLE30 MG ORAL; +LEVOTHYROXINE25 MCG ORAL; +LOVAZA1 GM ORAL; +NATURE'S TEARS15 M1 OP; +PAMELOR10 MG ORAL; +PATADAY2.5 ML OP; +PROAIR HFA8.5 GM INH; +PROCTOCREAM-HC30 GM RC; +SUMATRIPTAN SUC25 MG PO; +TRAMADOL HCL50 MG ORAL
[2018-01-03 18:57] VITALS: BP 126/82
--- NOTE | 2018-01-03 20:31 | Emergency Room Report ---
History of Present Illness General Chief Complaint: Upper Extremity Injury Source: Patient, Medical Record Present Illness HPI 62-year-old female presents to the emergency department complaining of 8 out of 10 in severity left wrist and knuckle pain for digits 2 through 5 status post mechanical fall prior to arrival. Patient reports falling on outstretched hand she denies hitting her head she denies loss of consciousness. Patient reports tenderness to the previously mentioned areas and states that pain is exacerbated upon movement and palpation. She reports history of hypothyroid, CVA and asthma. Patient denies taking blood thinners. Patient states she has not taken any medication for her current symptoms. Denies numbness tingling or loss of sensation or gross motor movements of the extremities, incontinence of bowel or bladder. Denies CP, Palpitations, LOC, AMS, dizziness, Changes in Vision, Sensation, paresthesias, or a sudden severe headache. Allergies: Coded Allergies: No Known Allergies (Unverified , 04/24/13) Patient History Past Medical History: see triage record Past Surgical History: none Pertinent Family History: none Reviewed Nursing Documentation: PMH: Agreed; PSxH: Agreed Nursing Documentation-PMH Past Medical History: No History, Except For Hx Cardiac Problems: Yes Hx Hypertension: Yes Hx Pacemaker: No - HYPOTHYROIDSIM Hx Asthma: Yes Hx Diabetes: Yes Hx Cancer: No Hx Gastrointestinal Problems: No Hx Neurological Problems: No Hx Cerebrovascular Accident: Yes - 2010 Hx Weakness: Yes - GENERALIZED Review of Systems All Other Systems: negative except mentioned in HPI Physical Exam Vital Signs Date Time Temp Pulse Resp B/P (MAP) Pulse Ox O2 Delivery O2 Flow Rate FiO2 01/03/18 18:45 98.4 90 18 126/82 95 Room Air 98.4 Sp02 EP Interpretation: reviewed, normal General Appearance: no apparent distress, alert, GCS 15, non-toxic Head: normocephalic, atraumatic Eyes: bilateral eye normal inspection ENT: hearing grossly normal, normal voice Neck: full range of motion Respiratory: lungs clear, normal breath sounds, speaking full sentences Cardiovascular #1: regular rate, rhythm, normal capillary refill Cardiovascular #2: 2+ carotid (L) Musculoskeletal: back normal, gait/station normal, normal range of motion, tender - Distal left forearm, and dorsal portion of knuckles 2 through 5. No snuffbox tenderness no pain with axial loading of the thumb. NO Obvious deformity, or significant swelling Neurologic: alert, oriented x3, responsive, motor strength/tone normal, sensory intact, normal gait, speech normal, grossly normal Psychiatric: judgement/insight normal Skin: normal color, no rash, warm/dry, well hydrated, other - No open wounds, or bruises Medical Decision Making PA Attestation Dr. Logan is my supervising Physician whom patient management has been discussed with. Diagnostic Impression: Primary Impression: Left wrist sprain Qualified Codes: S63.502A - Unspecified sprain of left wrist, initial encounter Additional Impressions: Hand contusion Qualified Codes: S60.222A - Contusion of left hand, initial encounter Hand pain, left ER Course Pt. presents to the ED c/o left wrist and pain to the second through fifth knuckles of the left hand status post mechanical trip and fall earlier today. Ddx considered but are not limited to Fracture, dislocation, contusion, Sprain/ Strain/Spasm,or Head injury just to name a few. Vital signs: are WNL, pt. is afebrile H&PE are most consistent with musculoskeletal injury will perform imaging to r/ o fractures/dislocations. ORDERS: - X-ray left forearm, left hand- negative for fx, Dislocation, or significant soft tissue injury, per preliminary read in ED, and signed by ABEL Kang , my supervising physician has reviewed, and agrees with my interpretation. ED INTERVENTIONS: - Ice Pack applied to affected area -Tylenol PO Left volar wrist Splint applied by technology support analyst. Pt. remains neurovascularly intact. -Left arm Sling applied by technology support analyst. Pt. remains neurovascularly intact. d/w pt. conservative treatment, and to follow up with a primary care provider. pt given a list of primary care clinics for follow up. d/w pt. to return to the ED with worsening or new symptoms. DISCHARGE: At this time pt. is stable for d/c to home. Will provide printed patient care instructions, and any necessary prescriptions. Care plan and follow up instructions have been discussed with the patient prior to discharge. Other X-Ray Diagnostic Results Other X-Ray Diagnostic Results #1: X-Ray ordered: Left Hand # of Views/Limited Vs Complete: 3 View Indication: Pain EP Interpretation: Yes ABEL Xray: Interpretation reviewed, by supervising MD, and agrees with findings. Interpretation: no dislocation, no soft tissue swelling, no fractures Impression: No acute disease Electronically Signed by: Megan Kang PA-C Other X-Ray Diagnostic Results #2: X-Ray ordered: Left Forearm # of Views/Limited Vs Complete: 2 View Indication: Pain EP Interpretation: Yes PA Xray: Interpretation reviewed, by supervising MD, and agrees with findings. Interpretation: no dislocation, no soft tissue swelling, no fractures Impression: No acute disease Electronically Signed by: Megan Kang PA-C Last Vital Signs Date Time Temp Pulse Resp B/P (MAP) Pulse Ox O2 Delivery O2 Flow Rate FiO2 01/03/18 18:57 98.4 90 18 126/82 95 Room Air 98.4 Disposition: HOME, SELF-CARE Condition: Serious Scripts Ibuprofen* (MOTRIN*) 400 Mg Tablet 400 MG ORAL THREE TIMES A DAY, #20 TAB 0 Refills Prov: Megan Kang 01/03/18 Referrals: [facility],REFERRING (PCP) Patient Instructions: Hand Contusion, [id number], Wrist Sprain Additional Instructions: Take medications as directed. Follow up with a Primary Care Provider in 3-5 days, even if your symptoms have resolved. --Please review list of primary care clinics, if you do not already have a primary care provider Return sooner to ED if new symptoms occur, or current symptoms become worse. - Please note that this Emergency Department Report was dictated using [employer] agent technology software, occasionally this can lead to erroneous entry secondary to interpretation by the dictation equipment. Megan Kang Jan 03, 2018 20:31
[2018-01-03] MEDS ORDERED: IBUPROFEN400 MG ORAL (20:32)
[2018-01-03 20:45] VITALS: BP 135/95
--- NOTE | 2018-01-04 08:46 | Diagnostic Imaging Report ---
Indication: Pain, status post fall Technique: 2 views of the left forearm Comparison: none Findings: No acute fractures. No dislocations. Calcifications are seen in the first metacarpal. Impression: No acute bony trauma First metacarpal calcifications-please refer to separate hand radiograph report
--- NOTE | 2018-01-04 08:48 | Diagnostic Imaging Report ---
Indication: Pain, status post fall Technique: 3 views left hand Comparison: none Findings: No acute fractures. No dislocations. Unusual calcifications are seen throughout the first metacarpal. No associated lucency Impression: No acute bony trauma Calcifications within the first metacarpal. Uncertain as to whether these are from an enchondroma, versus an old bone infarct.
== END 2018-01-03 20:46 | disposition home or self-care (01) ==
LOC: EMR 19:05
DX: S63.502A Unspecified sprain of left wrist, initial encounter (principal); W19.XXXA Unspecified fall, initial encounter; Y92.9 Unspecified place or not applicable; I10 Essential (primary) hypertension; J44.9 Chronic obstructive pulmonary disease, unspecified; E11.9 Type 2 diabetes mellitus without complications; Z86.73 Personal history of transient ischemic attack (TIA), and cerebral infarction without residual deficits; E03.9 Hypothyroidism, unspecified; J45.909 Unspecified asthma, uncomplicated
CPT/HCPCS: 99284

== ENCOUNTER 2018-04-21 11:49 | Emergency (ER) | payer MEDICARE, OTHER ==
[~2018-04-21] VITALS: Ht 152.4 cm; Wt 77.1 kg
[2018-04-21 12:18] VITALS: BP 117/75
[2018-04-21] MEDS ORDERED: Ketorolac 30mg Inj IM ONE (12:30)
--- NOTE | 2018-04-21 12:33 | Emergency Room Report ---
History of Present Illness General Chief Complaint: Upper Extremity Injury Source: Patient Present Illness HPI 62-year-old female patient resides here complaining of left elbow pain for the past 2 weeks. Contrary to triage report, patient did not describe as burning pain. Patient reports that she fell on her left wrist a few months ago and was seen here [facility], states she thinks that the pain may be related to that fall, did not complain of pain since that time. Denies recent trauma or injury. Reports she is taking ibuprofen for pain symptoms, last took last night. Reports feeling some pain moving to her hands. Reports she is right-hand dominant. Denies chest pain, shortness of breath, other acute symptoms. Reports her doctor states she "may have" arthritis. reports currently going to physical therapy for pain in her right hand, possibly related to arthritis. Allergies: Coded Allergies: No Known Allergies (Unverified , 04/21/18) Patient History Past Medical History: see triage record Reviewed Nursing Documentation: PMH: Agreed; PSxH: Agreed Nursing Documentation-PMH Past Medical History: No History, Except For Hx Cardiac Problems: Yes Hx Hypertension: Yes Hx Pacemaker: No - HYPOTHYROIDSIM Hx Asthma: Yes Hx Diabetes: Yes Hx Cancer: No Hx Gastrointestinal Problems: No Hx Neurological Problems: No Hx Cerebrovascular Accident: Yes - 2010 Hx Weakness: Yes - GENERALIZED Review of Systems All Other Systems: negative except mentioned in HPI Physical Exam Vital Signs Date Time Temp Pulse Resp B/P (MAP) Pulse Ox O2 Delivery O2 Flow Rate FiO2 04/21/18 12:11 98.5 82 15 117/75 97 Room Air 98.4 Sp02 EP Interpretation: reviewed, normal General Appearance: well appearing, no apparent distress, alert, GCS 15, non- toxic Head: normocephalic, atraumatic Eyes: bilateral eye normal inspection, bilateral eye PERRL ENT: hearing grossly normal, normal pharynx, no angioedema, normal voice, uvula midline, moist mucus membranes Neck: full range of motion Respiratory: lungs clear, normal breath sounds, no rhonchi, no respiratory distress, no accessory muscle use, no wheezing, speaking full sentences Cardiovascular #1: regular rate, rhythm, no edema Cardiovascular #2: 2+ radial (R), 2+ radial (L) Musculoskeletal: back normal, digits/nails normal, gait/station normal, normal range of motion, other - AIN, when necessary, radial nerve intact, no erythema or edema, no snuffbox tenderness, tender - left lateral epicondyle Neurologic: alert, oriented x3, responsive, motor strength/tone normal, sensory intact Skin: no rash Medical Decision Making PA Attestation Dr. Ramirez is my supervising Physician whom patient management has been discussed with. Diagnostic Impression: Primary Impression: Elbow pain, left ER Course Pt. presents to the ED c/o left elbow pain. Ddx considered but are not limited to fracture, sprain, strain, contusion, dislocation, bursitis, epicondylitis. No erythema, no warmth to touch, no fever, nontoxic appearing, low suspicion for septic joint. Vital signs: are WNL, pt. is afebrile Ordered X-ray and pain medication. ER COURSE Provided with pain medication. Reports pain with movement however has full range of motion, neurovascularly intact. Patient observed using arm with full ROM while in ER without difficulty. An X-ray of the left elbow shows no acute disease per the preliminary reading. Possible nerve irritation due to overuse or arthritis. FATOU wrap and sling was applied to the left elbow was checked afterwards by me showing good alignment and support with distal neurovascular functioning intact. instructed to perform range of motion exercises at home. Discuss referral for PT with PCP. If unable to get referral follow-up with orthopedic urgent care, contact information provided. Patient instructed on RICE method: rest, ice, compression, elevation. Patient instructed on rest, ice and heat. Patient instructed to be WBAT Followup with primary care provider. Discuss referral to ortho/pain management/ PT as needed. Discuss further imaging with MRI/CT as needed. DISCHARGE: -Rx provided for Tylenol for pain symptoms. At this time pt. is stable for d/c to home. Patient is resting comfortably, in no acute distress, nontoxic appearing, talking without difficulty. Will provide printed patient care instructions, and any necessary prescriptions. Patient instructed to follow with primary care provider in 3 - 5 days and to request further follow-up as needed. Care plan and follow up instructions have been discussed with the patient prior to discharge. Take medications as directed. Patient questions asked and answered. Patient reports understanding and agreement to treatment plan. ER precautions given, patient instructed to return to ER immediately for any new or worsening of symptoms. - Please note that this Emergency Department Report was dictated using Dragon candy vendor technology software, occasionally this can lead to erroneous entry secondary to interpretation by the dictation equipment. Other X-Ray Diagnostic Results Other X-Ray Diagnostic Results : X-Ray ordered: left elbow # of Views/Limited Vs Complete: 3 View Indication: Pain EP Interpretation: Yes PA Xray: Interpretation reviewed, by supervising MD, and agrees with findings. Interpretation: no dislocation, no soft tissue swelling, no fractures Impression: No acute disease PA Scribe Text Chris ROMAN-Gretchen Last Vital Signs Date Time Temp Pulse Resp B/P (MAP) Pulse Ox O2 Delivery O2 Flow Rate FiO2 04/21/18 12:18 98.4 79 15 117/75 97 Room Air 98.4 Disposition: HOME, SELF-CARE Condition: Stable Scripts Acetaminophen* (TYLENOL EXTRA STRENGTH*) 500 Mg Tablet 500 MG ORAL Q8H PRN for Prn Headache/Temp > 101, #30 TAB 0 Refills Prov: Hugo Ireland 04/21/18 Referrals: [facility],REFERRING (PCP) Patient Instructions: Lateral Epicondylitis With Rehab-SportsMed, Tennis Elbow , Aqlm-eo-Agdo, Ulnar Nerve Contusion With Rehab-SportsMed Additional Instructions: Patient instructed to follow up with primary care provider and discuss further referral to orthopedics. Discuss referral to physical therapy. Patient instructed on RICE method: rest, ice, compression, elevation. Patient instructed to WBAT. Take medications as directed. Patient questions asked and answered. ER precautions given, patient instructed to return to ER immediately for any new or worsening of symptoms. Hugo Ireland Apr 21, 2018 12:33
[2018-04-21] MEDS ORDERED: TYLENOL EXTRA500 MG ORAL (12:59)
[2018-04-21 13:17] VITALS: BP 107/68
[2018-04-21 13:18] VITALS: BP 107/68
--- NOTE | 2018-04-21 13:35 | Diagnostic Imaging Report ---
Indications:Reason For Exam: PAIN Technique: Three or 4 views of the left elbow Comparison: None Findings: No definite joint effusion. No acute fractures. No dislocations. The joint spaces are preserved. Impression: Negative
== END 2018-04-21 13:17 | disposition home or self-care (01) ==
LOC: EMR 12:19
DX: M25.522 Pain in left elbow (principal); E11.9 Type 2 diabetes mellitus without complications; I10 Essential (primary) hypertension; J45.909 Unspecified asthma, uncomplicated; E03.9 Hypothyroidism, unspecified; Z86.73 Personal history of transient ischemic attack (TIA), and cerebral infarction without residual deficits
CPT/HCPCS: 73080; 96372; 99283; J1885

== ENCOUNTER 2019-07-01 16:26 | Emergency (ER) | payer MEDICARE, OTHER ==
[~2019-07-01] VITALS: Ht 160 cm; Wt 77.1 kg
[~2019-07-01 16:26] MED LIST changes: +TYLENOL EXTRA500 MG ORAL
[2019-07-01 16:55] VITALS: BP 144/85
--- NOTE | 2019-07-01 16:56 | NUR ---
ED Nurse Note:pt. fell at home and c/o right wrist pain
--- NOTE | 2019-07-01 17:26 | Emergency Room Report ---
History of Present Illness General Chief Complaint: Upper Extremity Injury Source: Medical Record (Megan Kang) Present Illness HPI 63 YO Female presents to the ED c/o 02/26 in severity pain, tenderness and swelling to the right wrist and elbow. S/p mechanical trip and fall. pt. denies thumb pain. pt. reports she is right hand dominant. pt. with recent surgery in the right wrist. pt. has pain upon palpation and movement of the right wrist and elbow. no relieving factors at this time. denies hitting her head or having an LOC. denies neck or back pain. pt. denies open wounds or bleeding. (Megan Kang) Allergies: Coded Allergies: No Known Allergies (Unverified , 04/21/18) Patient History Past Medical History: see triage record Past Surgical History: none Pertinent Family History: none Now: No Reviewed Nursing Documentation: PMH: Agreed; PSxH: Agreed (Megan Kang) Nursing Documentation-PMH Past Medical History: No History, Except For Hx Cardiac Problems: Yes Hx Hypertension: Yes Hx Pacemaker: No - HYPOTHYROIDSIM Hx Asthma: Yes Hx Diabetes: Yes Hx Cancer: No Hx Gastrointestinal Problems: No Hx Neurological Problems: No Hx Cerebrovascular Accident: Yes - 2010 Hx Weakness: Yes - GENERALIZED (Meagn Kang) Review of Systems All Other Systems: negative except mentioned in HPI (Megan Kang) Physical Exam Vital Signs Date Time Temp Pulse Resp B/P (MAP) Pulse Ox O2 Delivery O2 Flow Rate FiO2 07/01/19 16:31 98.2 77 16 144/85 (104) 96 Room Air Sp02 EP Interpretation: reviewed, normal General Appearance: no apparent distress, alert, GCS 15, non-toxic Head: normocephalic, atraumatic Eyes: bilateral eye normal inspection, bilateral eye PERRL ENT: hearing grossly normal, normal voice Neck: full range of motion, no bony tend Respiratory: lungs clear, normal breath sounds, speaking full sentences Cardiovascular #1: regular rate, rhythm, normal capillary refill Cardiovascular #2: 2+ radial (R), 2+ radial (L) Musculoskeletal: gait/station normal, normal range of motion, tender - TTP to lateral right elbow, ttp to dorsal and lateral aspect of the right wrist, some swelling in the right wrist, FROM . no obvious deformities. Neurologic: alert, oriented x3, responsive, motor strength/tone normal, sensory intact, speech normal, grossly normal Psychiatric: judgement/insight normal Skin: other - no bruises. (Megan Kang) Medical Decision Making ABEL Attestation Dr. Tom Is my supervising Physician whom patient management has been discussed with. (Megan Kang) Diagnostic Impression: Primary Impression: Right wrist sprain Qualified Codes: S63.501A - Unspecified sprain of right wrist, initial encounter Additional Impression: Contusion of elbow, right Qualified Codes: S50.01XA - Contusion of right elbow, initial encounter ER Course 63 YO Female presents to the ED c/o 02/26 in severity pain, tenderness and swelling to the right wrist and elbow. S/p mechanical trip and fall. pt. denies thumb pain. pt. reports she is right hand dominant. pt. with recent surgery in the right wrist. pt. has pain upon palpation and movement of the right wrist and elbow. no relieving factors at this time. denies hitting her head or having an LOC. denies neck or back pain. pt. denies open wounds or bleeding. Ddx considered but are not limited to Fracture, dislocation, contusion, Sprain/ Strain/Spasm, Epidural abscess, Neoplastic mets. Vital signs: are WNL, pt. is afebrile H&PE are most consistent with musculoskeletal injury will perform imaging to r/ o fractures/dislocations. ORDERS: - X-ray Right wrist 3 views and right elbow 3 views - negative for fx, Dislocation, or significant soft tissue injury, per preliminary read in ED, and signed by ABEL Kang, my supervising physician has reviewed, and agrees with my interpretation. ED INTERVENTIONS: - Tylenol PO -right wrist splint applied by dictaphone technician. Pt. remains neurovascularly intact. - Right arm sling applied by dictaphone technician. Pt. remains neurovascularly intact. DISCHARGE: At this time pt. is stable for d/c to home. Will provide printed patient care instructions, and any necessary prescriptions. Care plan and follow up instructions have been discussed with the patient prior to discharge. (Megan Kang) Other X-Ray Diagnostic Results Other X-Ray Diagnostic Results #1: X-Ray ordered: Right Wrist # of Views/Limited Vs Complete: 3 View Indication: Pain EP Interpretation: Yes ABEL Xray: Interpretation reviewed, by supervising MD, and agrees with findings. Interpretation: no dislocation, no soft tissue swelling, no fractures Impression: No acute disease Electronically Signed by: Megan Kang PA-C Other X-Ray Diagnostic Results #2: X-Ray ordered: Right Elbow # of Views/Limited Vs Complete: 3 View Indication: Pain EP Interpretation: Yes PA Xray: Interpretation reviewed, by supervising MD, and agrees with findings. Interpretation: no dislocation, no soft tissue swelling, no fractures Impression: No acute disease Electronically Signed by: Megan Kang PA-C (Megan Kang) Other X-Ray Diagnostic Results #1: Electronically Signed by: ABEL xray documentation reviewed by me and is accurate, Renzo Tom MD. Other X-Ray Diagnostic Results #2: Electronically Signed by: ABEL xray documentation reviewed by me and is accurate, Renzo Tom MD. (Renzo Tom MD) Last Vital Signs Date Time Temp Pulse Resp B/P (MAP) Pulse Ox O2 Delivery O2 Flow Rate FiO2 07/01/19 16:55 98.2 78 16 144/85 96 Room Air Status: improved (Megan Kang) Disposition: HOME, SELF-CARE Condition: Stable Scripts Diclofenac Sodium (VOLTAREN) 100 Gm Gel..gram. 1 APPLIC TP Q6HR, #100 GM Prov: Megan Kang 07/01/19 Patient Instructions: Elbow Contusion, Wrist Sprain Additional Instructions: Take medications as directed. Follow up with a Primary Care Provider in 3-5 days, even if your symptoms have resolved. --Please review list of primary care clinics, if you do not already have a primary care provider Return sooner to ED if new symptoms occur, or current symptoms become worse. - Please note that this Emergency Department Report was dictated using userfoxopen claims representative technology software, occasionally this can lead to erroneous entry secondary to interpretation by the dictation equipment. Megan Kang Jul 01, 2019 17:26 Renzo Tom MD Jul 03, 2019 14:20
[2019-07-01] MEDS ORDERED: VOLTAREN100 G1 TP (17:59)
[2019-07-01 18:08] VITALS: BP 144/85
--- NOTE | 2019-07-01 18:12 | NUR ---
ER DISCHARGE NOTE:wrist splint and arm sling placed on right arm Patient is cleared to be discharged per ERMD, pt is aox4, on room air, with stable vital signs. pt was given dc and prescription instructions, pt was able to verbalize understanding, pt is able to ambulate with steady gait. pt took all belongings.
--- NOTE | 2019-07-02 13:05 | Diagnostic Imaging Report ---
Indications:Pain, status post fall Technique: Three or 4 views of the right elbow Comparison: None Findings: No acute fractures. No dislocations. The joint spaces are preserved Impression: Negative
--- NOTE | 2019-07-02 13:06 | Diagnostic Imaging Report ---
Clinical Indication:Wrist pain, status post fall Technique: 3 views of the right wrist Comparison: None Findings: No acute fractures. No dislocations. The joint spaces are preserved. Impression: Negative
== END 2019-07-01 18:08 | disposition home or self-care (01) ==
LOC: EMR 17:19
DX: S63.501A Unspecified sprain of right wrist, initial encounter (principal); S50.01XA Contusion of right elbow, initial encounter; I10 Essential (primary) hypertension; E03.9 Hypothyroidism, unspecified; J45.909 Unspecified asthma, uncomplicated; E11.9 Type 2 diabetes mellitus without complications; Z86.73 Personal history of transient ischemic attack (TIA), and cerebral infarction without residual deficits; W01.0XXA Fall on same level from slipping, tripping and stumbling without subsequent striking against object, initial encounter; Y92.9 Unspecified place or not applicable
CPT/HCPCS: 29125; 99284

== ENCOUNTER 2019-11-23 06:53 | Day surgery (SDC) | payer MEDICARE, OTHER ==
[~2019-11-23] VITALS: Ht 152.4 cm; Wt 77.1 kg
[2019-11-23] VITALS (10 sets, daily range): BP systolic 121–135; BP diastolic 51–89
[~2019-11-23 06:53] MED LIST changes: +LIDOCAINE15 GM TP; +ROBAXIN-500MG ORAL; +VOLTAREN100 G1 TP
[2019-11-23] MEDS ORDERED: ceFAZolin sod 1 GM in NS 55 ML IVPB ONE (07:00)
[2019-11-23] MEDS ORDERED: Vitamin D PO (08:21)
[2019-11-23] MEDS ORDERED: FISH OIL CAP1000 MG ORAL (08:22)
[2019-11-23 08:23] LABS: ANION GAP 15 mmol/L (5-15); BLOOD UREA NITROGEN 19 mg/dL (7-18); CALCIUM 9.2 MG/DL (8.5-10.1); CARBON DIOXIDE 22 MMOL/L (21-32); CHLORIDE 105 MMOL/L (98-107); CREATININE 0.8 MG/DL (0.55-1.30); POTASSIUM 3.9 MMOL/L (3.5-5.1); SODIUM 142 MMOL/L (136-145)
[2019-11-23] MEDS ORDERED: ALLER-TEC10 M1 PO (08:23)
[2019-11-23] MEDS ORDERED: FLUTICASONE PRO16 G1 NASAL (08:24)
[2019-11-23] MEDS ORDERED: MYRBETRIQ25 MG PO (08:25)
[2019-11-23] MEDS ORDERED: Midazolam 2mg/2ml Inj ONE (08:26)
[2019-11-23] MEDS ORDERED: Propofol 200mg/20ml IV ONE (08:26)
[2019-11-23] MEDS ORDERED: OS-CAL 500+D31 EAC1 PO (08:26)
[2019-11-23] MEDS ORDERED: Lidocaine 1% MPF 10mg/ml 5ml ONE ×2 (08:26→09:20)
[2019-11-23] MEDS ORDERED: fentaNYL 100 mcg/2 mL IV ONE (08:26)
[2019-11-23] MEDS ORDERED: PATADAY2.5 ML OP (08:31)
[2019-11-23] MEDS ORDERED: ARTIFICIAL TEAR15 ML BOTH EYES (08:32)
[2019-11-23] MEDS ORDERED: Dexamethasone 4mg/ml vial ONE (08:45)
[2019-11-23] MEDS ORDERED: Lidocaine 1% Plain 30 ml INJ ONE (08:45)
[2019-11-23] MEDS ORDERED: Bacitracin 50000 Units Vial ONE (08:45)
[2019-11-23] MEDS ORDERED: Bupivacaine 0.25% Inj 30ml INJ ONE (08:45)
[2019-11-23] MEDS ORDERED: NS Irrig 1000ml IRRIG ONE ×2 (08:57→09:14)
[2019-11-23] MEDS ORDERED: Sterile Water Irrig 2000ml IRRIG ONE (09:00)
[2019-11-23] MEDS ORDERED: LR 1000ml ONE (09:00)
--- NOTE | 2019-11-23 09:08 | Pre-Procedure Note/Attestation ---
Pre-Procedure Note/Attestation Complete Prior to Procedure Planned Procedure: right Procedure Narrative: correction of right foot bunion with osteotomy and screw fixation Indications for Procedure Pre-Operative Diagnosis: right foot bunion Attestation I attest that I discussed the nature of the procedure; its benefits; risks and complications; and alternatives (and the risks and benefits of such alternatives ), prior to the procedure, with the patient (or the patient's legal vendor representatives). I attest that, if there was a reasonable possibility of needing a blood transfusion, the patient (or the patient's legal vendor representatives) was given the [facility] standardized written summary, pursuant to the [place] Blood Safety Act ([place] Health and Safety Code # 1645, as amended). I attest that I re-evaluated the patient just prior to the surgery and that there has been no change in the patient's H&P, except as documented below: Renny Thakkar DPM Nov 23, 2019 09:07
[2019-11-23] MEDS ORDERED: Betadine 10% Oint 30gm TOPIC ONE (09:30)
--- NOTE | 2019-11-23 09:41 | Anethesia Preoperative Eval ---
Anesthesia Pre-op PMH/ROS General Date of Evaluation: Nov 23, 2019 Time of Evaluation: 08:55 Anesthesiologist: Court Baird CRNA ASA Score: ASA 3 Mallampati Score Class I : Soft palate, uvula, fauces, pillars visible Class II: Soft palate, uvula, fauces visible Class III: Soft palate, base of uvula visible Class IV: Only hard plate visible Mallampati Classification: Class III Surgeon: Bijan Diagnosis: RIGHT foot bunion Surgical Procedure: RIGHT foot bunionectomy Anesthesia History: none Family History: no anesthesia problems Allergies: Coded Allergies: No Known Allergies (Unverified , 04/21/18) Medications: see eMAR Patient NPO?: Yes NPO Date: Nov 23, 2019 NPO Time: 00:00 Past Medical History Cardiovascular: Reports: HTN, other - ACS; Denies: CAD, [place], valve dz, arrhythmia Pulmonary: Reports: asthma, TRUPTI - BIPAP at night; Denies: COPD, other Gastrointestinal/Genitourinary: Reports: GERD; Denies: CRI, ESRD, other Neurologic/Psychiatric: Reports: CVA - LEFT mild hemiplegia, CVA 2011; Denies: dementia, depression/anxiety, TIA, other Endocrine: Reports: hypothyroidism HEENT: Reports: cataract (L), cataract (R), other - sinusitis; Denies: glaucoma, HOPI (L), HOPI (R) Hematology/Immune: Denies: anemia, DVT, bleeding disorder, other Musculoskeletal/Integumentary: Reports: OA; Denies: RA, DJD, DDD, edema, other Other: obesity PMH Narrative: as noted above PSxH Narrative: RT CT release, (B) cataract extraction, STEVE BSO Anesthesia Pre-op Phys. Exam Physician Exam Last Vital Signs Date Time Temp Pulse Resp B/P (MAP) Pulse Ox O2 Delivery O2 Flow Rate FiO2 11/23/19 08:07 Room Air 11/23/19 07:43 97.3 78 20 121/75 97 Constitutional: NAD, other - obese Neurologic: other - alert & oriented x 3 Cardiovascular: RRR Respiratory: CTA Gastrointestinal: S/NT/ND Airway Exam Mallampati Score: Class III MO: limited - large tongue Neck: short thick neck TMD: > 3 FB ROM: full Teeth: missing Dentures: no upper, no lower Anesthesia Pre-op A/P Labs Chemistry Test 11/23/19 07:30 Sodium Level 142 MMOL/L (136-145) Potassium Level 3.9 MMOL/L (3.5-5.1) Chloride Level 105 MMOL/L (98-107) Carbon Dioxide Level 22 MMOL/L (21-32) Anion Gap 15 mmol/L (5-15) Blood Urea Nitrogen 19 mg/dL (7-18) H Creatinine 0.8 MG/DL (0.55-1.30) Estimat Glomerular Filtration Rate > 60 mL/min (>60) Glucose Level 94 MG/DL (74-106) Calcium Level 9.2 MG/DL (8.5-10.1) Studies Pre-op Studies: EKG - NSR Risk Assessment & Plan Assessment: ASA 3, ok to proceed. Confirmed pt lives with son, instructed to use BIPAP x 24 hrs post-anesthesia Plan: MAC Status Change Before Surgery: No Pre-Antibiotics Drug: TBD Given Within 1 Hr of Incision: No Court Baird CRNA Nov 23, 2019 09:41
--- NOTE | 2019-11-23 09:44 | Immediate Post-Op Evaluation ---
Immediate Post-Op Evalulation Immediate Post-Op Evalulation Procedure: RIGHT foot bunionectomy Date of Evaluation: Nov 23, 2019 Time of Evaluation: 10:25 IV Fluids: LR 600 ml Estimated Blood Loss: 5 Blood Pressure Systolic: 122 Blood Pressure Diastolic: 72 Pulse Rate: 78 Respiratory Rate: 16 O2 Sat by Pulse Oximetry: 100 Temperature (Fahrenheit): 97.0 Pain Score (1-10): 0 Nausea: No Vomiting: No Complications none Patient Status: awake, patent Hydration Status: adequate Drug: Cefazolin 2000mg IV Given Within 1 Hr of Incision: Yes Time Given: 09:15 [address] Baird CRNA Nov 23, 2019 09:44
[2019-11-23] MEDS ORDERED: Ketorolac 30mg Inj IV PRN (09:45)
--- NOTE | 2019-11-23 10:22 | Brief Operative Note ---
Immediate Post Operative Note Operative Note Pre-op Diagnosis: right foot bunion Procedure: correction of bunion with osteotomy ans screw fixation right foot Post-op Diagnosis: same as preop Post-op Diagnosis: same as pre-op Surgeon: renny thakkar dpm Anesthesiologist: raven Anesthesia: MAC Specimen: yes Complications: none Condition: stable Fluids: 0 Estimated Blood Loss: none Drains: none Tourniquet time: 48 Implant(s) used?: Yes Renny Thakkar DPM Nov 23, 2019 10:22
--- NOTE | 2019-11-23 10:22 | Diagnostic Imaging Report ---
Indication: Foot pain Technique: 3 views right foot Comparison: None Findings: There is mild hallux valgus and bunion formation. There is mild metatarsus adductus. No acute fractures. No dislocations. The joint spaces are preserved. There is minimal hammertoe deformities second through fifth digits Impression: Acute process. Findings as noted
--- NOTE | 2019-11-23 10:34 | 48 Hour Post Anesthesia Eval ---
Post Anesthesia Evaluation Procedure: RIGHT foot bunionectomy Date of Evaluation: Nov 23, 2019 Time of Evaluation: 10:33 Blood Pressure Systolic: 126 0: 84 Pulse Rate: 75 Respiratory Rate: 16 Temperature (Fahrenheit): 97.0 O2 Sat by Pulse Oximetry: 100 Airway: patent Nausea: No Vomiting: No Pain Intensity: 0 Hydration Status: adequate Cardiopulmonary Status: stable Mental Status/LOC: patient returned to baseline Follow-up Care/Observations: per podiatry Post-Anesthesia Complications: none Follow-up care needed: N/A Court Baird CRNA Nov 23, 2019 10:34
--- NOTE | 2019-11-23 11:35 | Diagnostic Imaging Report ---
Indication: Status post bunionectomy Technique: 3 views right foot Comparison: none Findings: Overlying splint somewhat obscures bony detail. Patient is status post first metatarsal osteotomy and bunionectomy. A single surgical screw is seen reducing the osteotomy. Impression: Postoperative right foot. No unusual features
--- NOTE | 2019-11-23 15:00 | Pre-op HX & Phy Repo 2 SIG ---
DATE OF ADMISSION: 11/23/2019 HISTORY OF PRESENT ILLNESS: This is a 64-year-old female who has been suffering from a right foot pain for the past few years. The patient has been progressively getting worse during the past year. She had consultation with few doctors in the past. No treatment was rendered. The patient has worked and requires mobility on a daily basis. She does not report any recent illnesses including nausea, vomiting, fever, chills, shortness of breath. The patient is scheduled to have surgery today at [facility] on 11/23/2019. PAST MEDICAL HISTORY: Asthma, hypertension, high cholesterol, back pain, fatty liver. PAST SURGICAL HISTORY: None pertinent. ALLERGIES: Bactrim. SOCIAL HISTORY: Denies illicit drugs. FAMILY HISTORY: No pertinent findings. PHYSICAL EXAMINATION: VITAL SIGNS: Temperature 98.2, pulse 68, respiratory rate 16, blood pressure is 130/80, and O2 is 99% on room temperature. DERMATOLOGICAL: There is no open lesion. Bony prominence noticed on medial first MPJ, right. VASCULAR: Dorsalis pedis and posterior tibial are palpable. No edema. MUSCULOSKELETAL: Bony prominence on the medial side of the right foot is noticeable abutting against laterally. Full muscle strength noticed. Decreased motion of the first MPJ and mild tracking. Pain on palpation and pain on movement of the first MPJ. She is positive for hallux abductovalgus of the right foot. ASSESSMENT AND PLAN: This is a 64-year-old female who presented with progressively painful right bunion for the past few years. The patient has tried numerous conservative measures, however, she is still experiencing pain daily. Recommended surgery as an extensive management. The risks, benefits, and alternatives were discussed with the patient in detail who understands and wants to proceed with the surgical intervention. All the patient's questions have been addressed and answered. The patient is scheduled to have surgery today at [facility] on 11/23/2019. Renny Thakkar D.P.M. DR: INDRA JOB#: [id number] CC:
--- NOTE | 2019-11-23 15:45 | Operative Note - Dictated ---
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 TITLE OF THE OPERATION: Correction of painful right foot bunion with osteotomy and screw fixation. SURGEON: Renny Thakkar D.P.M. ANESTHESIOLOGIST: Court Baird CRNA. ANESTHESIA: Monitored anesthesia care. HEMOSTASIS: Pneumatic ankle tourniquet. ESTIMATED BLOOD LOSS: Negligible. MATERIALS USED: A 20 mm 3-0 cannulated Vilex screw was used. 2-0 Vicryl, 4-0 Vicryl, and 4-0 nylon. INJECTABLE: 20 mL of 0.25% Marcaine and 1% lidocaine in the ratio of 1:1 was injected into the right foot in a Harrison fashion block at the first MPJ. Postoperatively, 6 mL of 0.25% Marcaine and 8 mg of dexamethasone was given for postoperative pain management. PATHOLOGY: Bone resected from medial eminence of the right foot was sent for pathology and further study. DRESSING: The dressing consisted of Xeroform, Betadine ointment, Kerlix, and Coban and a forefoot cast was applied to the patient. COMPLICATIONS: None. CONDITION: Stable. DESCRIPTION OF PROCEDURE IN DETAIL: The patient was brought into the operating room and assisted onto the operating table in a supine position. She was well padded to avoid any excessive pressure. The patient was then given 1 g of Ancef before the start of surgery. A time-out was performed. Cotton padded pneumatic ankle tourniquet was then placed to the patient's right ankle. Local anesthesia block was administered with approximately 20 mL of 1:1 mixture of 1% lidocaine and 0.25% Marcaine. The foot was scrubbed, prepared, and draped in the usual aseptic manner. Attention was directed to the right foot. A pneumatic ankle tourniquet was then inflated to 250 mmHg using an Esmarch bandage to exsanguinate the foot. At this time, a preplanned incision was made on the right foot at the medial dorsal eminence following the contour of the bunion deformity extending down to the PIPJ of the hallux extending down to the midshaft of the phalanx. Incision was deepened through subcutaneous tissue. All vital structures were inspected and retracted from the field. Bleeders were cauterized and retracted. At this time, the capsule was exposed. A linear capsulotomy was performed to expose the head of the first metatarsophalangeal joint. Multiple cystic changes with hypertrophic bone was noticed. It was also noticed that the bone was extremely osteoporotic and metatarsal diameter was very thin. It was also noticed there was evidence of mild present this time. After the capsule was retracted and the head was exposed, a sagittal saw was used to osteotomize the medial eminence. The medial eminence was osteotomized and passed off the field. At this time, it was noted that there was dorsal exostosis. The exostosis was osteotomized with a sagittal saw. At this time, attention was then directed to the lateral side of the MPJ where a lateral release was done through the original incision. At this time, attention was then directed to the plantar adhesion of the sesamoid. The sesamoid apparatus was released from the lateral ligament to get more appropriate position. A modified R[place] osteotomy was utilized V shape with the apex distally and the base facing proximally. After creation of the bone cut, the capital fragment was created. The capital fragment was then shifted medially to more appropriate alignment. It was noticed that there was good movement and there was no tracking or stiffness present at this time. After the capital fragment was moved medially, the premeasured K-wire was removed from proximal to distal across the osteotomy site. The premeasured K-wire was then measured 20 mm. After sinking and countersinking, a cannulated screw was inserted following the planned K-wire. It was noted that the bone distance education director was optimal and the capital fragment was stable. At this time, attention was directed to the K-wire with K-wire retracted out. At this time, the area was lavaged with normal saline mixed with bacitracin. Subsequently, the capsule was closed using 2-0 Vicryl, followed by 4-0 Vicryl subcutaneous tissue and the skin was closed using 4-0 nylon. An injection of 6 mL of 0.5% plain Marcaine and 8 mg of dexamethasone was given in the area for postoperative pain management. The incision was subsequently dressed using Xeroform, Betadine ointment, 4 x 4, Tricia, and a forefoot cast was applied to the patient. At this time, the ankle tourniquet was deflated and immediate hyperemia was noted to digits 1 through 5. The patient was then transferred from the operating room to recovery room where she got postoperative shoes, crutches, and a possible walker if she cannot use crutches. Instruction was given to the patient. The patient was reminded to take all medications and set an appointment with Dr. Thakkar for next clinical hours, which was going to be on Tuesday. There were no complications to the surgery. The patient tolerated anesthesia and the surgery well. She will be discharged home upon clearance from anesthesia. Rachael WangPNatalio DR: INDRA JOB#: [id number] CC:
== END 2019-11-23 11:35 | disposition home or self-care (01) ==
LOC: SUR 06:53
DX: M20.11 Hallux valgus (acquired), right foot (principal); I10 Essential (primary) hypertension; E78.00 Pure hypercholesterolemia, unspecified; G47.33 Obstructive sleep apnea (adult) (pediatric); K21.9 Gastro-esophageal reflux disease without esophagitis; G81.94 Hemiplegia, unspecified affecting left nondominant side; E03.9 Hypothyroidism, unspecified; M19.90 Unspecified osteoarthritis, unspecified site; E66.9 Obesity, unspecified; Z68.33 Body mass index [BMI] 33.0-33.9, adult
CPT/HCPCS: 28299; 36415; 73630; 80048; 97161; C1713; J0690; J1100; J2001; J2250; J2704; J3490; J7120; 94003; 94150